=== PATIENT | male | born 1980 | race Caucasian/White ===

== ENCOUNTER 2018-03-02 14:34 | Emergency (ER) | payer BC, OTHER ==
[~2018-03-02 14:34] MED LIST: ISOVUE-370 76%-LOCM 1 ML ONE
[2018-03-02] MEDS ORDERED: Ondansetron ODT 4 MG TAB ONE (15:09)
[2018-03-02] MEDS ORDERED: Pantoprazole 40 MG VIAL ONE (15:22)
[2018-03-02 15:30] LABS: #Lymphocytes 1.2 thou/uL (1.20-3.40); #Monocytes 0.6 thou/uL (0.11-0.59); #Neutrophils 12.2 thou/uL (1.40-6.50); %Basophils 0.3 % (0.0-1.0); %Eosinophils 0.2 % (0.0-10.0); %Lymphocytes 8.6 % (21.0-51.0); %Monocytes 4.3 % (0.0-10.0); %Neutrophils 86.6 % (42.0-75.0); Hemoglobin 15.6 g/dL (14.0-18.0); Mean Corpuscular HGB CONC 34.5 g/dL (32.0-36.0); Mean Corpuscular Hemoglobin 30.3 pg (27.0-31.0); Mean Platelet Volume 9.2 fL (7.4-10.4); Platelet Count 172 thou/uL (130-400); Red Blood Cell (RBC) Count 5.15 mill/uL (4.70-6.10); White Blood Cell (WBC) Count 14.1 thou/uL (4.8-10.8)
[2018-03-02 15:33] LABS: ALT (SGPT) 25 U/L (8-55); AST (SGOT) 17 U/L (5-34); Albumin 4.2 g/dL (3.5-5.0); Alkaline Phosphatase 71 U/L (40-150); Anion Gap 12 mmol/L (10-20); BUN (Urea Nitrogen) 11 mg/dL (8.9-20.6); Bilirubin, Total 0.9 mg/dL (0.2-1.2); CK (CPK) 106 U/L (30-200); Calc. Creatinine Clearance 0 mL/min (70-130); Calcium 9.4 mg/dL (7.8-10.44); Carbon Dioxide 20 mmol/L (22-29); Chloride 105 mmol/L (98-107); Estimated GFR-MDRD Greater than 90; Globulin 2.9 g/dL (2.4-3.5); Glucose 162 mg/dL (70-105); Lipase 12 U/L (8-78); Protein, Total 7.1 g/dL (6.0-8.3); Sodium 133 mmol/L (136-145)
[2018-03-02 15:37] LABS: CKMB 1.7 ng/mL (0-6.6); Troponin I Less than 0.010 ng/mL (< 0.028)
--- NOTE | 2018-03-02 16:13 | CT ---
CT ABDOMEN AND PELVIS WITH CONTRAST: Date: 03/02/18 Multiple axial tomograms obtained through the abdomen and pelvis with IV enhancement. INDICATION: Abdominal pain with epigastric pain. Vomiting. FINDINGS: Lung bases clear. Liver, spleen, and pancreas are unremarkable. Adrenal glands are normal. Review of the kidneys reveals three or four nonobstructing calculi in the upper collecting structures of the right kidney, with the largest measuring approximately 4.0 mm in the upper pole structures. T here is no evidence of ureteral calculus. No hydronephrosis. No calculi seen in the left kidney. Bowel loops appear normal. Appendix is normal. Colon unremarkable. No adenopathy. IMPRESSION: 1. There are several nonobstructing calculi in the upper collecting structures of the right kidney. 2 Otherwise no acute process. POS: ROBERT
[2018-03-02] MEDS ORDERED: Metoclopramide HCl 10 MG/2 ML VIAL ONE (16:14)
[2018-03-02] MEDS ORDERED: Lidocaine 2% Viscous Solution 20 ML, Aluminum & Magnesium Hydroxide 30 ML, Donnatal Eli... SSW SCH (16:15)
[2018-03-02 16:18] LABS: Bilirubin Negative (Negative); Blood, Urine Negative (Negative); Clarity CLEAR (Clear); Glucose, Urine (Dipstick) Negative (Negative); Leukocyte Negative (Negative); Nitrite Negative (Negative); Protein, Urine (Dipstick) Negative (Neg-Trace); Specific Gravity, Urine 1.019 (1.002-1.036); Urobilinogen 0.2 mg/dL (0.2-1.0); pH, Urine 5.5 (5.0-9.0)
== END 2018-03-02 17:03 | disposition home or self-care (01) ==
LOC: ERS 14:34
DX: R10.13 Epigastric pain (principal); F43.10 Post-traumatic stress disorder, unspecified
CPT/HCPCS: 36415; 74177; 80053; 81003; 82550; 82553; 83690; 84484; 85025; 87086; 93005; 96361; 96374; 96375; 96376; C9113; J2270; J2765; Q0162

== ENCOUNTER 2019-10-12 13:17 | Outpatient (CLI) | payer OTHER ==
--- NOTE | 2019-10-12 14:33 | CT ---
CT Abdomen W WO Con: 10/12/2019 12:00 AM CLINICAL HISTORY: Possible mass versus cyst seen on ultrasound. TECHNIQUE: Multiple contiguous axial images were obtained and a CT of the abdomen and pelvis without and with IV contrast. Postcontrast images were obtained in the nephrographic and excretory phases. Sagittal and coronal reformats were performed. COMPARISON: Ultrasound 06/29/2019 FINDINGS: Kidneys and Urinary Tract: Right kidney and ureter: Calculi measuring up to 4 mm in size. No hydronephrosis or hydroureter. No r enal mass or other lesions. No urothelial lesions: no filling defect, dilation, stricture or wall thickening. Left kidney and ureter: Single 2 mm nonobstructing calcification. No hydronephrosis or hydroureter. N o renal mass or other lesions. No urothelial lesions: no filling defect, dilation, stricture or wall thickening. Remainder of Abdomen: Liver: Normal. Gallbladder and biliary system: Normal. No CT evident gallstones. No biliary ductal dilatation. Spleen: Normal. Pancreas: Normal. Adrenal glands: Normal. GI tract: Normal. Abdominal aorta and its major branches: Normal. No aneurysm. Peritoneum/retroperitoneum: Normal. No ascites. No adenopathy. Body wall and musculoskeletal: Normal. Visualized lower thorax: Normal. No pulmonary parenchymal mass or pleural effusion. IMPRESSION: Bilateral nonobstructing kidney stones
[2019-10-12] MEDS ORDERED: Iopamidol 370 76% 100 ML VIAL ONE (15:52)
== END 2019-10-12 13:18 | disposition home or self-care (01) ==
LOC: BICCT 13:17
PROVIDERS: ATTEND Nurse Practitioner Family
DX: R93.89 Abnormal findings on diagnostic imaging of other specified body structures (principal); N20.0 Calculus of kidney
CPT/HCPCS: 74170; Q9967

== ENCOUNTER 2022-04-06 09:23 | Inpatient (IN) | payer BC, OTHER ==
[2022-04-06] MEDS ORDERED: Morphine 4 MG/ML VIAL ONE (09:59)
[2022-04-06] MEDS ORDERED: Ondansetron PF 4 MG/2 ML Vial ONE ×2 (10:03→12:03)
[2022-04-06] MEDS ORDERED: Iopamidol-370 76% 500 ML 1 ML ONE (10:40)
[2022-04-06 10:46] LABS: #Lymphocytes 1.7 thou/uL (1.20-3.40); #Monocytes 1.4 thou/uL (0.11-0.59); #Neutrophils 14.8 thou/uL (1.40-6.50); %Basophils 0.2 % (0.0-1.0); %Eosinophils 0.1 % (0.0-10.0); %Lymphocytes 9.3 % (21.0-51.0); %Monocytes 7.8 % (0.0-10.0); %Neutrophils 82.5 % (42.0-75.0); Hemoglobin 15.9 g/dL (14.0-18.0); Mean Corpuscular HGB CONC 34.3 g/dL (32.0-36.0); Mean Corpuscular Hemoglobin 31.4 pg (27.0-31.0); Mean Corpuscular Volume 91.4 fL (78.0-98.0); Mean Platelet Volume 8.9 fL (7.4-10.4); Platelet Count 177 thou/uL (130-400); RBC Distribution Width 10.7 % (11.5-14.5); Red Blood Cell (RBC) Count 5.08 mill/uL (4.70-6.10)
[2022-04-06] MEDS ORDERED: Ondansetron PF 4 MG/2 ML Vial IVP PRN (10:54)
[2022-04-06] MEDS ORDERED: Ondansetron ODT 4 MG TAB PO PRN (10:56)
[2022-04-06] MEDS ORDERED: Acetaminophen 325 MG TAB PO PRN (10:56)
[2022-04-06] MEDS ORDERED: Ketorolac Tromethamine 30 MG/ML VIAL ONE ×2 (11:00→12:03)
[2022-04-06] MEDS ORDERED: Sodium Chloride 0.9% 1,000 ML IV SCH (11:00)
[2022-04-06] MEDS ORDERED: Bupivacaine PF 0.5% 30 ML VIAL ONE (11:23)
[2022-04-06] MEDS ORDERED: EPINEPHrine 1 MG/ML AMP ONE (11:23)
[2022-04-06] MEDS ORDERED: fentaNYL Citrate/PF 100 MCG/2 ML SYRINGE ONE ×4 (11:30→12:58)
[2022-04-06 11:31] LABS: ALT (SGPT) 34 U/L (8-55); AST (SGOT) 25 U/L (5-34); Albumin 3.9 g/dL (3.5-5.0); Alkaline Phosphatase 90 U/L (40-110); Anion Gap 17 mmol/L (10-20); BUN (Urea Nitrogen) 9 mg/dL (8.9-20.6); Calc. Creatinine Clearance 0 mL/min (70-130); Calcium 9.1 mg/dL (7.8-10.44); Carbon Dioxide 21 mmol/L (22-29); Chloride 101 mmol/L (98-107); Estimated GFR 113; Globulin 3.9 g/dL (2.4-3.5); Glucose 134 mg/dL (70-105); Lipase 10 U/L (8-78); Potassium 3.8 mmol/L (3.5-5.1); Protein, Total 7.8 g/dL (6.0-8.3); Sodium 135 mmol/L (136-145)
[2022-04-06] MEDS ORDERED: HYDROmorphone 0.5 MG/0.5 ML SYRINGE ONE ×9 (11:31→15:07)
[2022-04-06] MEDS ORDERED: Sodium Chloride 0.9% 100 ML ONE (11:39)
[2022-04-06] MEDS ORDERED: CEFAZOLIN 2 GM VIAL ONE (11:39)
[2022-04-06] MEDS ORDERED: HYDROmorphone 0.5 MG/0.5 ML SYRINGE SLOW IVP SCH (11:51)
[2022-04-06] MEDS ORDERED: Dexamethasone 20 MG/5 ML VIAL ONE (12:03)
[2022-04-06] MEDS ORDERED: Rocuronium Bromide 10 MG/ML (10ML VIAL) ONE (12:03)
[2022-04-06] MEDS ORDERED: Lidocaine 1% PF 5 ML VIAL ONE (12:03)
[2022-04-06] MEDS ORDERED: PROPOFOL 200 MG/20 ML VIAL ONE (12:03)
[2022-04-06] MEDS ORDERED: SUGAMMADEX SODIUM 200 MG/2 ML VIAL ONE (12:24)
[2022-04-06] MEDS ORDERED: Promethazine HCl 25 MG/ML VIAL ONE (12:54)
[2022-04-06] MEDS ORDERED: Ketamine 50 MG/ML (10ML VIAL) ONE (15:41)
[2022-04-06] MEDS ORDERED: Zolpidem Tartrate 5 MG TAB PO PRN (16:00)
[2022-04-06] MEDS ORDERED: diphenhydrAMINE 25 MG CAP PO PRN (16:00)
[2022-04-06] MEDS ORDERED: Promethazine HCl 25 MG/ML VIAL IM PRN (16:00)
[2022-04-06] MEDS ORDERED: diphenhydrAMINE 50 MG/ML VIAL IM/IV PRN (16:00)
[2022-04-06] MEDS ORDERED: Naloxone HCl 0.4 mg/ml Vial IV PRN (16:00)
[2022-04-06] MEDS ORDERED: HYDROmorphone/PF 10 MG in Sodium Chloride 0.9% 95 ML IVPB PRN (16:00)
[2022-04-06 16:24] LABS: #Monocytes 0.6 thou/uL (0.11-0.59); #Neutrophils 18.2 thou/uL (1.40-6.50); %Basophils 0.1 % (0.0-1.0); %Lymphocytes 5.2 % (21.0-51.0); %Monocytes 2.9 % (0.0-10.0); %Neutrophils 91.8 % (42.0-75.0); Hemoglobin 14.8 g/dL (14.0-18.0); Mean Corpuscular Hemoglobin 31.6 pg (27.0-31.0); Mean Corpuscular Volume 90.1 fL (78.0-98.0); Mean Platelet Volume 9.3 fL (7.4-10.4); Platelet Count 208 thou/uL (130-400); RBC Distribution Width 10.9 % (11.5-14.5); White Blood Cell (WBC) Count 19.8 thou/uL (4.8-10.8)
[2022-04-06 16:48] LABS: ALT (SGPT) 38 U/L (8-55); AST (SGOT) 31 U/L (5-34); Albumin 3.8 g/dL (3.5-5.0); Alkaline Phosphatase 96 U/L (40-110); Anion Gap 13 mmol/L (10-20); BUN (Urea Nitrogen) 10 mg/dL (8.9-20.6); Bilirubin, Total 1.6 mg/dL (0.2-1.2); Calc. Creatinine Clearance 0 mL/min (70-130); Calcium 8.9 mg/dL (7.8-10.44); Carbon Dioxide 23 mmol/L (22-29); Chloride 104 mmol/L (98-107); Estimated GFR 107; Globulin 3.6 g/dL (2.4-3.5); Glucose 167 mg/dL (70-105); Protein, Total 7.4 g/dL (6.0-8.3); Sodium 136 mmol/L (136-145)
[2022-04-06 18:53] VITALS: BMI 31.6
[2022-04-06] MEDS ORDERED: Enoxaparin Sodium 40 MG/0.4 ML SYRINGE SC SCH (21:00)
[2022-04-06] MEDS: Ondansetron PF 4 MG/2 ML Vial IVP PRN (21:16)
[2022-04-07] MEDS: Ketorolac Tromethamine 30 MG/ML VIAL IVP SCH ×2 (00:06→05:43)
[2022-04-07] MEDS ORDERED: HYDROmorphone/PF 10 MG in Sodium Chloride 0.9% 99 ML IVPB PRN (00:45)
[2022-04-07] MEDS: Ondansetron PF 4 MG/2 ML Vial IVP PRN (06:37)
[2022-04-07 07:57] VITALS: BP 125/74; TEMP 97.9
[2022-04-07] MEDS ORDERED: HYDROcodone/Acetaminophen 10/325 mg Tablet PO PRN ×2 (08:59)
[2022-04-07] MEDS ORDERED: Ondansetron ODT 4 MG TAB PO PRN (08:59)
[2022-04-07] MEDS ORDERED: Sodium Chloride 0.9% 1,000 ML IV SCH ×2 (09:00)
[2022-04-07] MEDS ORDERED: Ibuprofen 600 MG TAB PO PRN (12:00)
== END 2022-04-07 11:20 | disposition home or self-care (01) | DRG 343 ==
LOC: ERS 09:23 → SDC 11:15 → SJJU 15:21
PROVIDERS: ADMIT Specialist; ATTEND Specialist
PROC: 0DTJ4ZZ Resection of Appendix, Percutaneous Endoscopic Approach (ICD-10-PCS; principal; 2022-04-06)
DX: K35.80 Unspecified acute appendicitis (principal); Z86.16 Personal history of COVID-19; Z79.899 Other long term (current) drug therapy; F43.10 Post-traumatic stress disorder, unspecified
CPT/HCPCS: 36415; 74177; 80053; 83690; 85025; 88304; 96361; 96374; 96375; A4649; C1713; J0171; J0690; J1100; J1170; J1650; J1885; J2270; J2405; J2550; J2704; J3490; J7050; Q9967; S0020